=== PATIENT | male | born 1965 | race Caucasian/White ===

== ENCOUNTER 2016-06-10 11:55 | Emergency (ER) | payer BC, OTHER ==
[2016-06-10 12:04] VITALS: BMI 33.6
--- NOTE | 2016-06-10 12:20 | PDOC ---
History of Present Illness - General History Source: Patient Exam Limitations: No Limitations - History of Present Illness Initial Comments: 06/10/16 12:27 The patient is a 50 year old male with no significant past medical history who presents to the ED complaining of moderate, intermittent right flank pain, sharp in nature, radiating down the backside. No fever or chills. No hematuria or dysuria. No nausea, vomiting, or diarrhea. <Alexia Luke - Last Filed: 06/10/16 14:50> <Roderick Dwyer - Last Filed: 08/14/16 10:26> - General Chief Complaint: Pain, Acute Stated Complaint: BACK PAIN (KIDNEY) Time Seen by Provider: 06/10/16 12:19 Past History <Alexia Luke - Last Filed: 06/10/16 14:50> - Past Medical History Other medical history: DENIES - Psycho/Social/Smoking Cessation Hx Suicidal Ideation: No Smoking History: Current some day smoker Information on smoking cessation initiated: No <Roderick Dwyer - Last Filed: 08/14/16 10:26> - Past Medical History Allergies/Adverse Reactions: Allergies Allergy/AdvReac Type Severity Reaction Status Date / Time No Known Allergies Allergy Verified 06/10/16 12:04 Home Medications: Ambulatory Orders NK [No Known Home Medication] 06/10/16 Review of Systems - Review of Systems Able to Perform ROS?: Yes Comments:: 06/10/16 13:52 GENERAL/CONSTITUTIONAL: No fever or chills. No weakness. HEAD, EYES, EARS, NOSE AND THROAT: No change in vision. No ear pain or discharge. No sore throat CARDIOVASCULAR: No chest pain or shortness of breath. RESPIRATORY: No cough, wheezing, or hemoptysis. GASTROINTESTINAL: No nausea, vomiting, diarrhea or constipation. GENITOURINARY: No dysuria, frequency, or change in urination. MUSCULOSKELETAL: Right sided flank and back pain. No joint or muscle swelling or pain. No neck pain. SKIN: No rash NEUROLOGIC: No headache, vertigo, loss of consciousness, or change in strength/ sensation. ENDOCRINE: No increased thirst. No abnormal weight change. HEMATOLOGIC/LYMPHATIC: No anemia, easy bleeding, or history of blood clots. ALLERGIC/IMMUNOLOGIC: No hives or skin allergy. <Alexia Luke - Last Filed: 06/10/16 14:50> *Physical Exam - Vital Signs Last Vital Signs Temp Pulse Resp BP Pulse Ox 97.8 F 65 20 111/61 99 06/10/16 12:01 06/10/16 12:01 06/10/16 12:01 06/10/16 12:01 06/10/16 12:01 - Physical Exam Comments: 06/10/16 13:53 GENERAL: Awake, alert, and fully oriented, in no acute distress. Uncomfortable appearing. HEAD: No signs of trauma EYES: PERRLA, EOMI, sclera anicteric, conjunctiva clear ENT: Auricles normal inspection, hearing grossly normal, nares patent, oropharynx clear without exudates. Moist mucosa NECK: Normal ROM, supple, no lymphadenopathy, JVD, or masses LUNGS: Breath sounds equal, clear to auscultation bilaterally. No wheezes, and no crackles HEART: Regular rate and rhythm, normal S1 and S2, no murmurs, rubs or gallops ABDOMEN: Soft, nontender, normoactive bowel sounds. No guarding, no rebound. No masses BACK: Diffusely tender in the right flank. EXTREMITIES: Normal range of motion, no edema. No clubbing or cyanosis. No cords, erythema, or tenderness NEUROLOGICAL: Cranial nerves II through XII grossly intact. Normal speech, normal gait SKIN: Warm, Dry, normal turgor, no rashes or lesions noted. <Alexia Luke - Last Filed: 06/10/16 14:50> - Vital Signs Last Vital Signs Temp Pulse Resp BP Pulse Ox 97.8 F 65 20 111/61 99 06/10/16 12:01 06/10/16 12:01 06/10/16 12:01 06/10/16 12:01 06/10/16 12:01 <Roderick Dwyer - Last Filed: 08/14/16 10:26> ED Treatment Course - LABORATORY CBC & Chemistry Diagram: 06/10/16 12:46 06/10/16 12:46 - RADIOLOGY Radiograph Interpretation: 06/10/16 14:12 CT of abdomen and pelvis, read and interpreted by Dr. Street, demonstrates no evidence of urolithiasis or obstructive uropathy. Cholelithiasis. Will obtain Gallbladder US. 06/10/16 14:50 Gallbladder US, read by Dr. Street, shows cholelithias but no definite biliary tract dilatation. <Alexia Luke - Last Filed: 06/10/16 14:50> - LABORATORY CBC & Chemistry Diagram: 06/10/16 12:46 06/10/16 12:46 <Roderick Dwyer - Last Filed: 08/14/16 10:26> *DC/Admit/Observation/Transfer <Alexia Luke - Last Filed: 06/10/16 14:50> - Discharge Dispostion Admit: No - Attestations Physician Attestion: 06/10/16 12:20 I, Dr. Roderick Dwyer, attest that this document has been prepared under my direction and personally reviewed by me in its entirety. I further attest, that it accurately reflects all work, treatment, procedures and medical decision -making performed by me. <Roderick Dwyer - Last Filed: 08/14/16 10:26> Diagnosis at time of Disposition: Eloped - Discharge Dispostion Disposition: AGAINST MEDICAL ADVICE Condition at time of disposition: Unchanged/Unknown
[2016-06-10] MEDS ORDERED: KETOROLAC TROMETHAMINE 30 MG/1 ML VIAL IVPUSH ONE (12:42)
[2016-06-10] MEDS ORDERED: SODIUM CHLORIDE 1,000 ML IV ONE (12:42)
[2016-06-10] MEDS ORDERED: ONDANSETRON 4 MG/2 ML VIAL IVPUSH ONE (12:43)
[2016-06-10] MEDS ORDERED: ONDANSETRON 4 MG/2 ML VIAL ONE (12:48)
[2016-06-10] MEDS ORDERED: KETOROLAC TROMETHAMINE 30 MG/1 ML VIAL ONE (12:48)
[2016-06-10 12:50] LABS: BASOPHIL 0.7 % (0-2.0); EOSINOPHIL 0.7 % (0-4.5); MCH 32.7 pg (25.7-33.7); MCHC 33.8 g/dl (32.0-35.9); MEAN CELL VOLUME 96.9 fl (80-96); MEAN PLT VOLUME 8.6 fl (7.5-11.1); NEUTROPHILS 55.4 % (42.8-82.8); PLATELET COUNT 226 K/MM3 (134-434); RDW 13.7 % (11.9-15.9); WHITE BLOOD COUNT 10.4 K/mm3 (4.0-10.0)
[2016-06-10 12:52] LABS: URINE APPEARANCE CLEAR; URINE BILIRUBIN NEGATIVE (NEGATIVE); URINE BLOOD NEGATIVE (NEGATIVE); URINE COLOR YELLOW; URINE GLUCOSE (UA) NEGATIVE (NEGATIVE); URINE KETONE NEGATIVE (NEGATIVE); URINE LEUK ESTERASE NEGATIVE (NEGATIVE); URINE NITRITE NEGATIVE (NEGATIVE); URINE PROTEIN NEGATIVE (NEGATIVE); URINE UROBILINOGEN NEGATIVE E.U./dl (0.2-1.0)
[2016-06-10 13:22] LABS: ALBUMIN 3.7 g/dl (3.4-5.0); ALK PHOS 80 U/L (45-117); ANION GAP 8 (8-16); BILIRUBIN,TOTAL 0.4 mg/dL (0.2-1.0); CALCIUM 8.5 mg/dL (8.5-10.1); CO2 26 mmol/L (21-32); GLUCOSE,RANDOM 94 mg/dL (74-106); SGOT/AST 14 U/L (15-37); SGPT/ALT 16 U/L (12-78); TOT PROT 6.8 g/dl (6.4-8.2)
[2016-06-10 16:25] VITALS: BP 135/80; PULSE 87; TEMP 98.3
== END 2016-06-10 17:13 | disposition left against medical advice (07) ==
LOC: JER 11:55
PROC: 3E0333Z Introduction of Anti-inflammatory into Peripheral Vein, Percutaneous Approach (ICD-10-PCS; principal; 2016-06-10)
PROC: 3E033GC Introduction of Other Therapeutic Substance into Peripheral Vein, Percutaneous Approach (ICD-10-PCS; 2016-06-10)
DX: R10.31 Right lower quadrant pain (principal); K80.20 Calculus of gallbladder without cholecystitis without obstruction
CPT/HCPCS: 36415; 74176-TC; 76705-TC; 80053; 81003; 85025; 87086; 99284-25